=== PATIENT | male | born 2000 | race Caucasian/White ===

== ENCOUNTER 2022-04-24 21:40 | Emergency (ER) | payer BC, SELFPAY ==
[2022-04-24 22:00] VITALS: BP 145/93; PULSE 93; RESP 22; TEMP 36.3; O2SAT 98; BMI 31.2
[2022-04-24 22:34] VITALS: BP 138/92; PULSE 95; O2SAT 98
--- NOTE | 2022-04-24 22:45 | ED.SOB ---
HPI - SOB/Dyspnea General Chief Complaint: Shortness of Breath/Dyspnea Stated Complaint: Shortness of breathe, back and chest pain Time Seen by Provider: 04/24/22 22:07 History of Present Illness HPI Narrative: 21-year-old young man presenting to the emergency department accompanied by his mom with concern of shortness of breath and little bit of chest tightness. He starts talking very quickly as soon as I enter the room that he is mostly improved now. This all started last night sitting at his computer read just felt like he could get a good breath. He was however able to sleep all night and says then that the symptoms had persisted into the morning. He has not had any swelling or pain in his legs. Does have underlying history of asthma and inhaler did not help. This did not really feel like that anyway. No fever. Did have a head cold about a week ago but those symptoms have mostly resolved. Does have some environmental allergies I believe. No rashes were described. Did also have some mid upper back pain centrally when he was struggling to breathe. Related Data Home Medications Medication Instructions Recorded Confirmed albuterol sulfate 90 mcg/actuation inhalation 04/24/22 aerosol inhaler dextroamphetamine-amphetamine ER 20 mg PO DAILY 04/24/22 04/24/22 20 mg 24hr capsule,extend release (Adderall XR) montelukast 10 mg tablet mg 04/24/22 Allergies Allergy/AdvReac Type Severity Reaction Status Date / Time No Known Drug Allergies Allergy Verified 04/24/22 22:04 PFSH PFSH Social History Smoking Status: Never smoker How often do you have a drink containing alcohol: never AUDIT-C Alcohol total score: 0 Non-prescribed substance use: denies use Exam Narrative: Exam Narrative: Is pleasant. NAD. Talking stents of ana lilia rapidly. Does not be appear to be in any respiratory distress. Moving all extremities without difficulty. Cranial nerves 2-12 are intact Skin is warm and dry. Extremities are well perfused without edema. Lungs are clear. Oropharynx is moist not erythematous neck is supple without LA. Cardiovascular with elevated rate rhythm normal No reproduction of discomfort to palpation over chest or back. Const: Vital Signs, click to edit/add: Vital Signs - 24 hr 04/24/22 22:00 04/24/22 22:34 Temperature 97.4 F L Pulse Rate [Pulse Oximeter] 93 95 Respiratory Rate 22 Blood Pressure [Ri ght Upper Arm] 145/93 H 138/92 H Pulse Oximetry 98 98 Oxygen Delivery Me thod Room Air Room Air Documenting provider has reviewed patient's vital signs: yes Course Course Hospital Course: I discussed normal vitals and absence of symptoms now at this point with Mr. Smiley. I offer workup but given the option he would prefer to go home and follow up if things seem to get worse. He did consult with Mom. Vital Signs Vital signs: Initial Vital Signs Temperature 97.4 F L 04/24/22 22:00 Temperature Source Temporal Artery Scan 04/24/22 22:00 Pulse Rate 93 04/24/22 22:00 Respiratory Rate 22 04/24/22 22:00 Blood Pressure 145/93 H 04/24/22 22:00 Blood Pressure Mean 110 04/24/22 22:00 Blood Pressure Position Sitting 04/24/22 22:00 Pulse Oximetry 98 04/24/22 22:00 Oxygen Delivery Method 04/24/22 22:00 Vital Signs Temperature 97.4 F L 04/24/22 22:00 Pulse Rate 93 04/24/22 22:00 Respiratory Rate 22 04/24/22 22:00 Blood Pressure 145/93 H 04/24/22 22:00 Pulse Oximetry 98 04/24/22 22:00 Oxygen Delivery Method 04/24/22 22:00 Temperature 97.4 F L 04/24/22 22:00 Pulse Rate 95 04/24/22 22:34 Respiratory Rate 22 04/24/22 22:00 Blood Pressure 138/92 H 04/24/22 22:34 Pulse Oximetry 98 04/24/22 22:34 Oxygen Delivery Method 04/24/22 22:34 MDM - SOB/Dyspnea MDM Narrative Medical decision making narrative: I suspect more of an air hunger situation. Possible exacerbation of anxiety. We discussed together broad differential Discharge Plan Discharge Clinical Impression: Dyspnea, Psychogenic air hunger Patient Disposition: Home w/ Parent or Adult Condition: Improved Additional Instructions: You seem well at this time. Return if symptoms intensifying again, particularly if having a fever. Prescriptions: No Action dextroamphetamine-amphetamine [Adderall XR] 20 mg capsule,extended release 24hr 20 mg PO DAILY montelukast 10 mg tablet Label Comments: TAKE 1 TABLET BY MOUTH EVERY EVENING albuterol sulfate 90 mcg/actuation HFA aerosol inhaler INHALATION Label Comments: INHALE 2 PUFFS BY MOUTH EVERY 4 TO 6 HOURS NEEDED Stand Alone Forms: [facility] Info Inst[facility]
--- NOTE | 2022-04-24 23:18 | ED.NURSE ---
Patient left ED before d/c instructions could be given.
== END 2022-04-24 23:18 | disposition home or self-care (01) ==
PROVIDERS: Emergency Provider Family Medicine
DX: R06.00 Dyspnea, unspecified (principal); F45.8 Other somatoform disorders
CPT/HCPCS: 99282; 99283

== ENCOUNTER 2023-10-01 08:46 | Emergency (ER) | payer BC, SELFPAY ==
[2023-10-01 08:48] VITALS: BP 128/79; PULSE 97; RESP 18; TEMP 36.8; O2SAT 97; BMI 31.9
--- NOTE | 2023-10-01 09:04 | ED_ITS ---
HPI - General Adult General Chief complaint: Skin/Abscess/Foreign Body Stated complaint: perirectal abscess Time Seen by Provider: 10/01/23 08:56 Source: patient Mode of arrival: ambulatory Limitations: no limitations History of Present Illness HPI narrative: 23-year-old male presenting today with rectal pain. Patient states that he was seen in the urgent care yesterday and diagnosed with a perirectal abscess. Patient states that he was placed on antibiotics and he has a follow-up appointment with General surgery on Tuesday. He is coming back in today because his temperature was 99? and he is generally 96. He states that he feels fine aside from having pain in the rectum that has been present for several days. He denies any chills. No nausea or vomiting. He states that he has not had a bowel movement now for 3 days. He denies diaphoresis. He denies difficulty urinating. He states that he actually feels better today than he did yesterday. Related Data Home Medications Medication Instructions Recorded Confirmed albuterol sulfate 90 mcg/actuation 1 inh inhalation 04/24/22 09/30/23 aerosol inhaler dextroamphetamine-amphetamine ER 20 mg PO DAILY 04/24/22 10/01/23 20 mg 24hr capsule,extend release (Adderall XR) montelukast 10 mg tablet mg 04/24/22 09/30/23 cetirizine 10 mg tablet (24Hour 10 mg PO DAILY PRN 10/01/23 10/01/23 Allergy) dextroamphetamine-amphetamine 10 1 tab PO DAILY 10/01/23 10/01/23 mg tablet Previous Rx's Medication Instructions Recorded cefpodoxime 200 mg tablet 400 mg (2 x 200 mg) PO BID 7 days 09/30/23 #28 tabs metronidazole 500 mg tablet 500 mg PO BID 7 days #14 tabs 09/30/23 Allergies Allergy/AdvReac Type Severity Reaction Status Date / Time No Known Drug Allergies Allergy Verified 10/01/23 08:55 Review of Systems Status of ROS: Reports: 10 or more systems reviewed and unremarkable except as noted in History and below [facility] Social History Smoking Status: Never smoker How often do you have a drink containing alcohol: never AUDIT-C Alcohol total score: 0 Non-prescribed substance use: denies use Exam Narrative: Exam Narrative: Well-nourished well-developed patient in no acute distress. Alert and oriented. Answers questions appropriately. Mood and affect are appropriate. Thoughts are goal oriented and rational. No tangential or magical thinking noted. Patient speaks in full sentences without needing to catch his breath. HEENT: Normocephalic atraumatic. Pupils are equally round reactive to light. Extraocular muscles are intact. Conjunctivae are moist without any icterus noted. Moist mucous membranes. Rectal exam: Normal external rectum. There are no hemorrhoids present. There is no swelling or erythema noted. He has no pain or masses appreciated right inside the anus. He does have tenderness on the midline just distal to the rectal opening. The area is tender, and firm. There is no fluctuance in the area. He has no tenderness proximal to the rectum or lateral to the rectum. Normal rectal tone. Const: Vital Signs, click to edit/add: Vital Signs - 24 hr 10/01/23 08:48 Temperature 98.2 F Pulse Rate [Right Pulse Oximeter] 97 Respiratory Rate 18 Blood Pressure [Ri ght Upper Arm] 128/79 Pulse Oximetry 97 Oxygen Delivery Me thod Room Air Course Vital Signs Vital signs: Initial Vital Signs Temperature 98.2 F 10/01/23 08:48 Temperature Source Temporal Artery Scan 10/01/23 08:48 Pulse Rate 97 10/01/23 08:48 Pulse Rhythm Regular 10/01/23 08:48 Respiratory Rate 18 10/01/23 08:48 Blood Pressure 128/79 10/01/23 08:48 Blood Pressure Mean 95 10/01/23 08:48 Blood Pressure Position Sitting 10/01/23 08:48 Pulse Oximetry 97 10/01/23 08:48 Oxygen Delivery Method Room Air 10/01/23 08:48 Vital Signs Temperature 98.2 F 10/01/23 08:48 Pulse Rate 97 10/01/23 08:48 Respiratory Rate 18 10/01/23 08:48 Blood Pressure 128/79 10/01/23 08:48 Pulse Oximetry 97 10/01/23 08:48 Oxygen Delivery Method Room Air 10/01/23 08:48 Temperature 98.2 F 10/01/23 08:48 Pulse Rate 97 10/01/23 08:48 Respiratory Rate 18 10/01/23 08:48 Blood Pressure 128/79 10/01/23 08:48 Pulse Oximetry 97 10/01/23 08:48 Oxygen Delivery Method Room Air 10/01/23 08:48 Medical Decision Making MDM Narrative Medical decision making narrative: 23-year-old male with rectal pain. There certainly could be a small abscess just distal to the rectum. Given that he is feeling better today than he was yesterday with antibiotic treatment, I think it is reasonable to continue with the antibiotics as prescribed. He has a follow-up appointment already scheduled for Tuesday with General surgery. If he develops a fever of 100.5 or higher I do want him to return to the ER. If his pain is getting worse instead of better certainly return to the ER as well. Medical Records Medical records reviewed: Yes I reviewed the patient's medical records Discharge Plan Discharge Clinical Impression: Pain, rectal Patient Disposition: Home, Self-Care Condition: Stable Additional Instructions: Continue antibiotics as prescribed. Follow-up on Tuesday as scheduled. Return to the ER if your temperature goes up to 100.5 or higher. Okay to continue taking Advil: Up to 800 mg 3 times per day with food. Also recommend warm soaks in the bath tub if this is possible. Prescriptions: No Action metronidazole 500 mg tablet 500 mg PO BID 7 Days Qty: 14 0RF cefpodoxime 200 mg tablet 400 mg PO BID 7 Days Qty: 28 0RF Rx Instructions: must administer with a meal/food dextroamphetamine-amphetamine [Adderall XR] 20 mg capsule,extended release 24hr 20 mg PO DAILY montelukast 10 mg tablet Patient Comments: TAKE 1 TABLET BY MOUTH EVERY EVENING albuterol sulfate 90 mcg/actuation HFA aerosol inhaler 1 inh INHALATION Patient Comments: INHALE 2 PUFFS BY MOUTH EVERY 4 TO 6 HOURS NEEDED dextroamphetamine-amphetamine 10 mg tablet 1 tab PO DAILY cetirizine [24Hour Allergy] 10 mg tablet 10 mg PO DAILY PRN Follow Up/Referrals: Provider,Not a Local [Primary Care Provider] - Stand Alone Forms: [facility] Info Instructions
== END 2023-10-01 09:14 | disposition home or self-care (01) ==
LOC: ED 09:07
PROVIDERS: Emergency Provider Family Medicine
DX: K62.89 Other specified diseases of anus and rectum (principal)
CPT/HCPCS: 99283